=== PATIENT | female | born 1945 | race African-American/Black ===

== ENCOUNTER 2017-01-25 15:41 | Observation (INO) ==
--- NOTE | 2017-01-25 15:50 | Emergency Department Note ---
Disposition Clinical Impression: Chest pain, Elevated lipase Disposition: Admitted As Inpatient Condition: Good General Adult HPI - General Chief complaint: ED Chest Pain Stated complaint: C/P Time Seen by Provider: 01/25/17 15:46 Source: patient Limitations: no limitations - History of Present Illness Pain Scale: 6 - Related Data Home Medications Medication Instructions Recorded Confirmed Exemestane [Aromasin] 25 mg PO DAILY 02/28/15 01/26/17 Albuterol Sulfate [Albuterol 1 puff Q6HR PRN 03/01/15 01/26/17 Inhaler] Atorvastatin [Lipitor] 40 mg PO HS 03/01/15 01/26/17 Cholecalciferol (D-3) 1,000 unit PO DAILY 03/01/15 01/26/17 Fluticasone Propionate Nasal 2 spray NS DAILY PRN 03/01/15 01/26/17 [Flonase] Fluticasone/Salmeterol [Advair 1 each IH Q12H 03/01/15 01/26/17 250-50 Diskus] Lutein 6 mg PO DAILY 03/01/15 01/26/17 Multivit-Min/FA/Lycopen/Lutein 1 each PO DAILY 03/01/15 01/26/17 [Centrum Silver Tablet] Ranitidine HCl [Zantac] 300 mg PO HS 03/01/15 01/26/17 Triamterene/HCTZ 37.5/25mg 1 each PO DAILY 03/01/15 01/26/17 [Dyazide] Omeprazole [PriLOSEC] 40 mg PO DAILY 09/03/15 01/26/17 Acetaminophen [Tylenol] 325 mg PO Q6HR PRN 03/08/16 01/26/17 Diltiazem HCl [Cardizem Cd] 360 mg PO DAILY 03/08/16 01/26/17 Lisinopril [Zestril] 5 mg PO DAILY 03/08/16 01/26/17 Aspirin 81 mg PO DAILY 03/09/16 01/26/17 Dicyclomine [Bentyl] 10 mg PO QID PRN 12/17/16 01/26/17 Isosorbide MONOnitrate (24 HR) 30 mg PO DAILY 12/17/16 01/26/17 [Imdur] Meclizine HCl [Verticalm] 25 mg PO Q4-6H PRN 12/17/16 01/26/17 Montelukast [Singulair] 10 mg PO HS 12/17/16 01/26/17 Pregabalin [Lyrica] 150 mg PO BID 12/17/16 01/26/17 Ferrous Sulfate [Iron] 325 mg PO BID 01/25/17 01/26/17 Methocarbamol [Robaxin] 750 mg PO Q4H PRN 01/26/17 01/26/17 Previous Rx's Medication Instructions Recorded Albuterol Neb [Proventil Neb] 2.5 mg IH Q4HR PRN #20 vial.neb 10/26/15 Amoxicillin/Clavulanate [Augmentin] 875 mg PO BIDWM #14 tablet 01/26/17 Clindamycin [Cleocin] 150 mg PO QID #28 capsule 01/26/17 Fluconazole [Diflucan] 150 mg PO ONCE PRN #1 tablet 01/26/17 Allergies Allergy/AdvReac Type Severity Reaction Status Date / Time Beclomethasone Allergy Swelling Verified 01/26/17 08:29 [From Beconase AQ] of Lip/Tongue/Throat Erythromycin Base Allergy Rash Verified 01/26/17 08:29 adhesive AdvReac Redness of Verified 01/26/17 08:29 Skin cimetidine [From Tagamet] AdvReac See Verified 01/26/17 08:29 Comments Iodinated Contrast- Oral and AdvReac See Verified 01/26/17 08:29 IV Dye Comments [Iodinated Contrast Media - IV Dye] pantoprazole [From Protonix] AdvReac See Verified 01/26/17 08:29 Comments Past Medical History - Past Medical History Medical history: Reports: arthritis, asthma, cancer, coronary artery disease, diabetes, fibromyalgia, GERD, hypertension, migraine, myocardial infarction Surgical history: Reports: breast surgery, hysterectomy Psychiatric history: Reports: no psych history - Social History Smoking Status: Never smoker Smokeless Tobacco Status: No Alcohol use: Reports: none Drug use: Reports: none Physical Exam - General Limitations: no limitations General appearance: alert Course Vital Signs Temperature 98.7 F 01/25/17 15:42 Pulse Rate 82 01/25/17 15:42 Respiratory Rate 18 01/25/17 15:42 Blood Pressure 152/68 01/25/17 15:42 O2 Sat by Pulse Oximetry 99 01/25/17 15:42 Temperature 97.7 F 01/26/17 15:32 Pulse Rate 64 01/26/17 15:32 Respiratory Rate 14 01/26/17 15:32 Blood Pressure 171/87 01/26/17 15:32 O2 Sat by Pulse Oximetry 97 01/26/17 15:32 Oxygen Delivery Oxygen Delivery Room Air Medical Decision Making - Lab Data Result diagrams: 01/26/17 05:08 01/26/17 05:08 Lab Results 01/25/17 01/25/17 01/25/17 Range/Units 16:09 16:09 16:09 WBC 13.4 H (4.3-11.1) K/mcL RBC 4.36 (3.82-4.97) M/mcL Hgb 12.3 (11.5-15.4) g/dL Hct 39.2 (35.3-44.9) % MCV 89.9 (83.0-100.0) fL MCH 28.2 (28.0-33.3) pg MCHC 31.4 L (31.6-35.5) g/dL RDW 15.3 H (11.5-14.5) % Plt Count 241 (140-400) K/mcL MPV 10.1 (9.4-12.4) fL Immature Gran % 0.4 (0-4) % Seg Neutrophils % 84.3 % Lymphocytes % 9.9 % Monocytes % 4.3 % Eosinophils % 0.9 % Basophils % 0.2 % Neutrophils # 11.3 H (1.6-8.9) K/mcL Lymphocytes # 1.3 (0.6-4.6) K/mcL Monocytes # 0.6 (0.0-1.3) K/mcL Eosinophils # 0.1 (0.0-0.6) K/mcL Basophils # 0.0 (0.0-0.2) K/mcL PT 12.4 H (9.4-12.1) Seconds INR 1.1 APTT 28.2 (26.0-36.0) Seconds Sodium 139 (136-145) mEq/L Potassium 4.4 (3.5-4.5) mEq/L Chloride 102 (98-109) mEq/L Carbon Dioxide 31 H (19-29) mEq/L BUN 21 H (7-20) mg/dL Creatinine 1.23 H (0.57-1.11) mg/dL Est GFR ( Amer) 52 L (> 60) Est GFR (Non-Af Amer) 43 L (> 60) BUN/Creatinine Ratio 17 (6-26) Glucose 100 H (70-99) mg/dL Calculated Osmolality 291 (280-300) Calcium 9.7 (8.6-10.8) mg/dL Total Bilirubin (0.2-1.2) mg/dL Direct Bilirubin (0.0-0.5) mg/dL Indirect Bilirubin (0.0-1.2) mg/dL AST (5-34) Units/L ALT (0-55) Units/L Alkaline Phosphatase (38-126) Units/L Troponin I (0-0.03) ng/mL Serum Total Protein (6.0-8.3) g/dL Albumin (3.5-5.0) g/dL Globulin (2.4-3.5) g/dL Albumin/Globulin Ratio (1.1-2.2) Lipase (8-78) Units/L 01/25/17 01/25/17 Range/Units 16:09 16:09 WBC (4.3-11.1) K/mcL RBC (3.82-4.97) M/mcL Hgb (11.5-15.4) g/dL Hct (35.3-44.9) % MCV (83.0-100.0) fL MCH (28.0-33.3) pg MCHC (31.6-35.5) g/dL RDW (11.5-14.5) % Plt Count (140-400) K/mcL MPV (9.4-12.4) fL Immature Gran % (0-4) % Seg Neutrophils % % Lymphocytes % % Monocytes % % Eosinophils % % Basophils % % Neutrophils # (1.6-8.9) K/mcL Lymphocytes # (0.6-4.6) K/mcL Monocytes # (0.0-1.3) K/mcL Eosinophils # (0.0-0.6) K/mcL Basophils # (0.0-0.2) K/mcL PT (9.4-12.1) Seconds INR APTT (26.0-36.0) Seconds Sodium (136-145) mEq/L Potassium (3.5-4.5) mEq/L Chloride (98-109) mEq/L Carbon Dioxide (19-29) mEq/L BUN (7-20) mg/dL Creatinine (0.57-1.11) mg/dL Est GFR ( Amer) (> 60) Est GFR (Non-Af Amer) (> 60) BUN/Creatinine Ratio (6-26) Glucose (70-99) mg/dL Calculated Osmolality (280-300) Calcium (8.6-10.8) mg/dL Total Bilirubin 0.3 (0.2-1.2) mg/dL Direct Bilirubin 0.2 (0.0-0.5) mg/dL Indirect Bilirubin 0.1 (0.0-1.2) mg/dL AST 18 (5-34) Units/L ALT 23 (0-55) Units/L Alkaline Phosphatase 77 (38-126) Units/L Troponin I 0.00 (0-0.03) ng/mL Serum Total Protein 7.6 (6.0-8.3) g/dL Albumin 3.6 (3.5-5.0) g/dL Globulin 4.0 H (2.4-3.5) g/dL Albumin/Globulin Ratio 0.9 L (1.1-2.2) Lipase 414 H (8-78) Units/L Attestation Statement - Attestation Attestation: I examined this patient and my medical decision-making was reviewed with the Resident Physician. I agree with the documented findings, disposition and treatment plan as described except to the extent set forth below. Face to face time provided Patient seen in conjunction with the resident physician Dr. Giron. She has a history of diabetes, hypertension, coronary artery disease. She presents with chest discomfort over the past 4 days. She appears in no acute distress on initial exam.
[2017-01-25] MEDS ORDERED: Aspirin 81 MG TAB.CHEW PO ONE (16:02)
[2017-01-25] MEDS ORDERED: 0.9 % Sodium Chloride 500 ML IVC ONE (16:02)
[2017-01-25] MEDS ORDERED: *HR* Morphine 2 MG/ML SYRINGE IVP ONE (16:05)
--- NOTE | 2017-01-25 16:07 | Emergency Department Note ---
Disposition Clinical Impression: Elevated lipase Chest pain Qualifiers: Chest pain type: unspecified Qualified Code(s): R07.9 - Chest pain, unspecified Disposition: Admitted As Inpatient Referrals: NO,PCP [Primary Care Provider] - Forms: ED Satisfaction Letter Time of Disposition: 17:28 Chest Pain HPI - General Chief Complaint: ED Chest Pain Stated Complaint: C/P Time Seen by Provider: 01/25/17 15:46 Source: patient Limitations: no limitations Vital Signs Reviewed: Yes Nursing Notes Reviewed: Yes - History of Present Illness HPI Narrative: Patient is a 71-year-old female past medical history of hypertension, hypercholesterol, heart catheterization with no stent placement in 2012 presents emergency Department with complaint of left-sided chest pain has been going on for the past 4 days. She states the chest pain is stabbing like, constant, nonradiating, no nausea or vomiting, does not change with exertion, and she has not experienced any diaphoresis. The patient states she has been under added stress as of recently she has one the custody of HER-2 granddaughters this past Thursday 4 days ago and she got into a verbal argument with the father of the girl's last night. The patient states this does not feel the same as her chest pain she had when she was admitted to the hospital and had a catheterization done. Severity scale (1-10): 6 - Related Data Home Medications Medication Instructions Recorded Confirmed Exemestane [Aromasin] 25 mg PO DAILY 02/28/15 12/17/16 Albuterol Sulfate [Albuterol 1 puff Q6HR PRN 03/01/15 12/17/16 Inhaler] Atorvastatin [Lipitor] 40 mg PO HS 03/01/15 12/17/16 Cholecalciferol (D-3) 1,000 unit PO DAILY 03/01/15 12/17/16 Fluticasone Propionate Nasal 2 spray NS DAILY PRN 03/01/15 12/17/16 [Flonase] Fluticasone/Salmeterol [Advair 1 each IH Q12H 03/01/15 12/17/16 250-50 Diskus] Lutein 6 mg PO DAILY 03/01/15 12/17/16 Multivit-Min/FA/Lycopen/Lutein 1 each PO DAILY 03/01/15 12/17/16 [Centrum Silver Tablet] Ranitidine HCl [Zantac] 300 mg PO HS 03/01/15 12/17/16 Triamterene/HCTZ 37.5/25mg 1 each PO BID 03/01/15 12/17/16 [Dyazide] Omeprazole [PriLOSEC] 40 mg PO DAILY 09/03/15 12/17/16 Acetaminophen [Tylenol] 325 mg PO Q6HR PRN 03/08/16 12/17/16 Diltiazem HCl [Cardizem Cd] 360 mg PO DAILY 03/08/16 12/17/16 Lisinopril [Zestril] 5 mg PO DAILY 03/08/16 12/17/16 Aspirin 81 mg PO DAILY 03/09/16 12/17/16 Cetirizine HCl [Zyrtec] 10 mg PO DAILY PRN 12/17/16 12/17/16 Dicyclomine [Bentyl] 10 mg PO QID PRN 12/17/16 12/17/16 Isosorbide MONOnitrate (24 HR) 30 mg PO DAILY 12/17/16 12/17/16 [Imdur] Meclizine HCl [Verticalm] 25 mg PO Q4-6H PRN 12/17/16 12/17/16 Montelukast [Singulair] 10 mg PO DAILY 12/17/16 12/17/16 Pregabalin [Lyrica] 150 mg PO BID 12/17/16 12/17/16 Previous Rx's Medication Instructions Recorded Albuterol Neb [Proventil Neb] 2.5 mg IH Q4HR PRN #20 vial.neb 10/26/15 Ferrous Sulfate [Iron] 325 mg PO DAILY #90 tablet 11/27/16 Allergies Allergy/AdvReac Type Severity Reaction Status Date / Time Beclomethasone Allergy Difficulty Verified 12/17/16 11:35 [From Beconase AQ] Breathing cimetidine [From Tagamet] Allergy Abdominal Verified 12/17/16 11:35 Pain Erythromycin Base Allergy Rash Verified 12/17/16 11:35 adhesive AdvReac Redness of Verified 12/17/16 11:35 Skin Iodinated Contrast- Oral and AdvReac See Verified 12/17/16 11:35 IV Dye Comments [Iodinated Contrast Media - IV Dye] pantoprazole [From Protonix] AdvReac See Verified 12/17/16 11:35 Comments All systems ED: reviewed and negative except as stated. Chest Pain PMH - Past Medical History Medical history: Reports: arthritis, asthma, cancer, coronary artery disease, diabetes, fibromyalgia, GERD, hypertension, migraine, myocardial infarction Surgical history: Reports: breast surgery, hysterectomy Psychiatric history: Reports: no psych history - Social History Smoking Status: Never smoker Alcohol use: Reports: none Drug use: Reports: none Physical Exam Patient is sitting up comfortably in room she is laughing and in good spirits. - General Limitations: no limitations General appearance: alert, in no apparent distress - Head Head exam: atraumatic, normocephalic, normal inspection - Eye Eye exam: Present: normal appearance, PERRL, EOMI - ENT ENT exam: normal exam, normal oropharynx, mucous membranes moist - Neck Neck exam: Present: normal inspection, full ROM, trachea midline. Absent: tenderness - Chest Chest inspection: Present: normal inspection, symmetric chest wall rise. Absent : tenderness - Respiratory Respiratory exam: Present: normal lung sounds bilaterally. Absent: respiratory distress, wheezes, stridor - Cardiovascular Cardiovascular exam: Present: regular rate, normal rhythm, normal heart sounds - Abdominal Exam Abdominal exam: Present: soft, Non-Tender, normal bowel sounds - Extremities Exam Extremities exam: Present: normal inspection, full ROM, normal capillary refill. Absent: tenderness, pedal edema - Expanded Lower Extremity Exam Lower leg exam: Present: normal inspection, full ROM. Absent: tenderness, swelling Neurovascular/Tendon exam: Present: normal capillary refill, normal 2-point discrimination. Absent: pulse deficit, motor deficit, sensory deficit, extremity cold to touch - Back Exam Back exam: Present: normal inspection, full ROM. Absent: tenderness - Neurological Exam Neurological exam: Present: alert, oriented X3, CN II-XII intact - Psychiatric Psychiatric exam: Present: normal affect, normal mood - Skin Skin exam: Present: warm, dry, intact, normal color Course Course Narrative: Patient is a 71-year-old female with past medical history of a heart catheterization in 2012 that did not require stents. Patient presents today with a complaint of left-sided chest pain that is stabbing in nature and is constant and does not change with exertion and she does have episodes of nausea however she has had no emesis, diaphoresis, radiation. The patient's EKG is normal. I have given her morphine IV for pain and order a half liter of fluids for her. The patient has been sitting up in bed smiling and is laughing and joking very pleasant lady she appears to be in no distress. The plan is to order cardiac enzymes basic labs and order a chest x-ray to rule out any other cause of her chest. Patient agrees with the plan. - Reevaluation(s) Reevaluation #1: The patient states that her pain is now more epigastric in nature. Therefore, I added on a lipase and LFTs. Time: 17:11 Reevaluation #2: I discussed the patient case with the hospitalists Jaspal. They agree to accept the patient for elevated lipase and for ACS rule out. Time: 17:25 Reevaluation #3: On review of the patient's labs she does have an elevated lipase that is greater than 4 times or the normal limit therefore we will admit the patient for further evaluation and also for ACS rule out. Patient agrees with the plan Time: 17:26 Vital Signs Temperature 98.7 F 01/25/17 15:42 Pulse Rate 82 01/25/17 15:42 Respiratory Rate 18 01/25/17 15:42 Blood Pressure 152/68 01/25/17 15:42 O2 Sat by Pulse Oximetry 99 01/25/17 15:42 Temperature 98.7 F 01/25/17 15:42 Pulse Rate 77 01/25/17 16:19 Respiratory Rate 16 01/25/17 16:19 Blood Pressure 166/70 01/25/17 16:19 O2 Sat by Pulse Oximetry 97 01/25/17 16:19 Oxygen Delivery Oxygen Delivery Room Air Chest Pain - Medical Records Medical records reviewed: Yes I reviewed the patient's medical records. - Lab Data Lab results reviewed: Yes I reviewed the patient's lab results. Result diagrams: 01/25/17 16:09 01/25/17 16:09 Lab Results 01/25/17 01/25/17 01/25/17 Range/Units 16:09 16:09 16:09 WBC 13.4 H (4.3-11.1) K/mcL RBC 4.36 (3.82-4.97) M/mcL Hgb 12.3 (11.5-15.4) g/dL Hct 39.2 (35.3-44.9) % MCV 89.9 (83.0-100.0) fL MCH 28.2 (28.0-33.3) pg MCHC 31.4 L (31.6-35.5) g/dL RDW 15.3 H (11.5-14.5) % Plt Count 241 (140-400) K/mcL MPV 10.1 (9.4-12.4) fL Immature Gran % 0.4 (0-4) % Seg Neutrophils % 84.3 % Lymphocytes % 9.9 % Monocytes % 4.3 % Eosinophils % 0.9 % Basophils % 0.2 % Neutrophils # 11.3 H (1.6-8.9) K/mcL Lymphocytes # 1.3 (0.6-4.6) K/mcL Monocytes # 0.6 (0.0-1.3) K/mcL Eosinophils # 0.1 (0.0-0.6) K/mcL Basophils # 0.0 (0.0-0.2) K/mcL PT 12.4 H (9.4-12.1) Seconds INR 1.1 APTT 28.2 (26.0-36.0) Seconds Sodium 139 (136-145) mEq/L Potassium 4.4 (3.5-4.5) mEq/L Chloride 102 (98-109) mEq/L Carbon Dioxide 31 H (19-29) mEq/L BUN 21 H (7-20) mg/dL Creatinine 1.23 H (0.57-1.11) mg/dL Est GFR ( Amer) 52 L (> 60) Est GFR (Non-Af Amer) 43 L (> 60) BUN/Creatinine Ratio 17 (6-26) Glucose 100 H (70-99) mg/dL Calculated Osmolality 291 (280-300) Calcium 9.7 (8.6-10.8) mg/dL Total Bilirubin (0.2-1.2) mg/dL Direct Bilirubin (0.0-0.5) mg/dL Indirect Bilirubin (0.0-1.2) mg/dL AST (5-34) Units/L ALT (0-55) Units/L Alkaline Phosphatase (38-126) Units/L Troponin I (0-0.03) ng/mL Serum Total Protein (6.0-8.3) g/dL Albumin (3.5-5.0) g/dL Globulin (2.4-3.5) g/dL Albumin/Globulin Ratio (1.1-2.2) Lipase (8-78) Units/L 01/25/17 01/25/17 Range/Units 16:09 16:09 WBC (4.3-11.1) K/mcL RBC (3.82-4.97) M/mcL Hgb (11.5-15.4) g/dL Hct (35.3-44.9) % MCV (83.0-100.0) fL MCH (28.0-33.3) pg MCHC (31.6-35.5) g/dL RDW (11.5-14.5) % Plt Count (140-400) K/mcL MPV (9.4-12.4) fL Immature Gran % (0-4) % Seg Neutrophils % % Lymphocytes % % Monocytes % % Eosinophils % % Basophils % % Neutrophils # (1.6-8.9) K/mcL Lymphocytes # (0.6-4.6) K/mcL Monocytes # (0.0-1.3) K/mcL Eosinophils # (0.0-0.6) K/mcL Basophils # (0.0-0.2) K/mcL PT (9.4-12.1) Seconds INR APTT (26.0-36.0) Seconds Sodium (136-145) mEq/L Potassium (3.5-4.5) mEq/L Chloride (98-109) mEq/L Carbon Dioxide (19-29) mEq/L BUN (7-20) mg/dL Creatinine (0.57-1.11) mg/dL Est GFR ( Amer) (> 60) Est GFR (Non-Af Amer) (> 60) BUN/Creatinine Ratio (6-26) Glucose (70-99) mg/dL Calculated Osmolality (280-300) Calcium (8.6-10.8) mg/dL Total Bilirubin 0.3 (0.2-1.2) mg/dL Direct Bilirubin 0.2 (0.0-0.5) mg/dL Indirect Bilirubin 0.1 (0.0-1.2) mg/dL AST 18 (5-34) Units/L ALT 23 (0-55) Units/L Alkaline Phosphatase 77 (38-126) Units/L Troponin I 0.00 (0-0.03) ng/mL Serum Total Protein 7.6 (6.0-8.3) g/dL Albumin 3.6 (3.5-5.0) g/dL Globulin 4.0 H (2.4-3.5) g/dL Albumin/Globulin Ratio 0.9 L (1.1-2.2) Lipase 414 H (8-78) Units/L - Radiology Data Radiology results reviewed: Yes I reviewed the patient's radiology results. - EKG Data EKG attestation: Yes I reviewed and interpreted this EKG. EKG results narrative: EKG was interpreted by me. This EKG is a sinus rhythm at a rate of 84 bpm is normal access and her MA, QRS, QT intervals are all within normal limits. I see no signs of ST elevation or depression noted Q waves no T-wave abnormalities no signs of ischemia. This is unchanged from her prior EKG done on 03/08/16 Heart Score - Score History: Slightly Suspicious EKG: Normal Age: Greater than 65 Risk Factors: 1-2 risk factors Troponin: Less than normal limit HEART Score Total: 3
[2017-01-25 16:16] LABS: Basophils % 0.2 %; Eosinophils # 0.1 K/mcL (0.0-0.6); Eosinophils % 0.9 %; Hematocrit 39.2 % (35.3-44.9); Hemoglobin 12.3 g/dL (11.5-15.4); Immature Granulocytes % 0.4 % (0-4); Lymphocytes # 1.3 K/mcL (0.6-4.6); Lymphocytes % 9.9 %; Mean Corpuscular HGB Conc 31.4 g/dL (31.6-35.5); Mean Corpuscular Hemoglobin 28.2 pg (28.0-33.3); Mean Corpuscular Volume 89.9 fL (83.0-100.0); Mean Platelet Volume 10.1 fL (9.4-12.4); Monocytes # 0.6 K/mcL (0.0-1.3); Monocytes % 4.3 %; Neutrophils # 11.3 K/mcL (1.6-8.9); Platelet Count 241 K/mcL (140-400); Red Blood Count 4.36 M/mcL (3.82-4.97); Red Cell Distribution Width 15.3 % (11.5-14.5); Segmented Neutrophils % 84.3 %
[2017-01-25 16:22] LABS: INR 1.1; Prothrombin Time 12.4 Seconds (9.4-12.1)
[2017-01-25 16:25] LABS: Activated Partial Thrombo Time 28.2 Seconds (26.0-36.0)
[2017-01-25 16:27] LABS: Calcium 9.7 mg/dL (8.6-10.8); Potassium 4.4 mEq/L (3.5-4.5)
[2017-01-25] MEDS ORDERED: Aspirin 81 MG TAB.CHEW ONE (16:33)
[2017-01-25] MEDS ORDERED: Hyoscyamine 0.5 MG/ML MLS SQ ONE (16:38)
[2017-01-25 16:56] LABS: Albumin 3.6 g/dL (3.5-5.0); Albumin/Globulin Ratio 0.9 (1.1-2.2); Bilirubin,Direct 0.2 mg/dL (0.0-0.5); Bilirubin,Indirect 0.1 mg/dL (0.0-1.2); Bilirubin,Total 0.3 mg/dL (0.2-1.2); Total Protein 7.6 g/dL (6.0-8.3)
[2017-01-25] MEDS ORDERED: Hyoscyamine SL 0.125 MG TAB.SUBL SL ONE (17:18)
[2017-01-25] MEDS ORDERED: *HR* Morphine 2 MG/ML SYRINGE IVP PRN (21:03)
[2017-01-25] MEDS ORDERED: *HR* HYDROcodone/Acet 5/325 mg TABLET PO PRN (21:03)
[2017-01-25] MEDS ORDERED: Naloxone 0.4 MG/ML INJ IVP PRN (21:03)
[2017-01-25] MEDS ORDERED: Ondansetron 4 MG/2 ML VIAL IVP PRN (21:03)
--- NOTE | 2017-01-25 21:59 | Internal Med History&Physical ---
<Wesley Bills - Last Filed: 01/25/17 22:44> Date of Encounter: 01/25/17 Time of Encounter: 20:00 Assessment and Plan (1) Chest pain Current visit: Yes Status: Acute Patient presents with acute chest pain that began 4 days ago and became progressively worse. Patient describes pain as sharp and located under her left breast with radiation to her left arm. Patient has a history of CAD and heart catheterization with no stent placement. Patient to be placed on continuous cardiac telemetry with supplemental O2, trended troponins x2, and EV echocardiogram. Will consider possible cardiology consult based on echocardiogram and troponin results. Patient to be monitored closely for signs of increasing cardiac distress. Qualifiers: Chest pain type: other chest pain Qualified Code(s): R07.89 - Other chest pain; R07.8 - Other chest pain (2) Leukocytosis Current visit: Yes Status: Acute Patient presents with leukocytosis and WBC of 13.4 on admission. Patient reports she has a golf ball-sized cyst on the left labia that she has been prescribed PO Bactrim for less than 7 days ago. Will discontinue PO Bactrim and start IV Unasyn 1.5 gm Q6. Follow-up labs ordered to monitor patient's WBC. Blood cultures x2 ordered stat. Will monitor patient for signs of increasing infection and consider changing IV antibiotics as necessary. Qualifiers: Leukocytosis type: unspecified Qualified Code(s): D72.829 - Elevated white blood cell count, unspecified (3) SOB (shortness of breath) Current visit: Yes Status: Acute Patient presents with increased shortness of breath associated with current chest pain symptoms. Patient denies use of home O2. Will place patient on supplemental O2 with titration if SpO2 < 92% and continuous SpO2 monitoring. CPAP ordered HS for sleep apnea. DuoNebs Q6 PRN ordered. (4) HTN (hypertension) Current visit: Yes Status: Chronic Patient presents with history of chronic HTN. Will monitor patient and vital signs and continue patient's lisinopril. Qualifiers: Hypertension type: essential hypertension Qualified Code(s): I10 - Essential (primary) hypertension (5) HLD (hyperlipidemia) Current visit: Yes Status: Chronic Patient presents with history of chronic HLD. Lipid panel ordered. Will continue patient's Lipitor. Qualifiers: Hyperlipidemia type: pure hypercholesterolemia Qualified Code(s): E78.00 - Pure hypercholesterolemia, unspecified; E78.0 - Pure hypercholesterolemia (6) GERD (gastroesophageal reflux disease) Current visit: Yes Status: Chronic Patient presents with chronic GERD. Patient reports that she cannot take Protonix due to abdominal pain and stomach upset it causes her. Will continue patient's Prilosec and Zantac PO. Qualifiers: Esophagitis presence: with esophagitis Qualified Code(s): K21.0 - Gastro- esophageal reflux disease with esophagitis (7) BRAD (obstructive sleep apnea) Current visit: Yes Status: Chronic Patient presents with chronic sleep apnea. Supplemental O2 ordered. CPAP ordered HS. (8) DVT prophylaxis Current visit: Yes Status: Acute Patient to be placed on DVT prophylaxis due to admission protocol and bed rest status. Heparin 5,000 units SQ Q8 ordered. Internal Medicine - H&P: HPI Chief complaint: Chest pain Admitted From: Emergency Dept Plans for Post Hospital Care: Home History of present illness: Mrs. Bray is a 71 year old female who presents from the ED with chief complaint of chest pain that she states began 4 days ago and became worse last night. She describes the pain as sharp under her left breast that radiated to her left arm. Patient states that she has had this type of pain before but not as bad. She denies recent illness, nausea, vomiting, diaphoresis, abdominal pain , dizziness, generalized weakness, vision changes, pre-syncope, or syncope. She states that she has been under more stress lately due to family issues. Patient does report some SOB with symptoms. Patient has a medical history of arthritis, asthma, sarcoidosis, CAD, cancer, diabetes, fibromyalgia, GERD, HTN, migraine, and previous DE. Patient also states that she has a golf ball-sized cyst on her left labia that she was prescribed PO Bactrim for. Mrs. Bray had a heart catheterization in 2012 with no stent placement. Mrs. Bray it at moderate risk for cardiac event based on her history and current symptoms and will be placed as observation status with orders for continuous cardiac telemetry, supplemental O2 with SpO2 monitoring, EV echocardiogram, troponins trended x2, as well as IV Unasyn for cyst infection and leukocytosis. Patient to be monitored closely for signs of increased infection, cardiac and/or respiratory distress. Time spent with patient > 40 minutes. Past Med Surg Social Fam HX - Past Medical History Source: patient Medical history: arthritis, asthma, cancer, coronary artery disease, diabetes, fibromyalgia, GERD, hypertension, migraine, myocardial infarction Psychiatric history: no psych history - Past Surgical History Surgical History: breast surgery, hysterectomy - Social History Smoking Status: Never smoker Smokeless Tobacco Status: No Alcohol use: none Drug use: none Current living situation: Home, With Family Activity Level: Independent ambulation, Very active Recent Out of Country Travel Within the Last 8 Weeks: No Exposure or Possible Exposure to Illness During Travel: No - Family History Mother Race: Living Status: Still Living Hx Family Cardiac Disorders: Yes (HTN) Hx Family Cancer: Yes (Breast) Father Race: Living Status: Age at : 75 Hx Family Cardiac Disorders: Yes (HTN) Hx Family Cancer: Yes (Colon, prostate) Brother Race: Living Status: Age at : 68 Hx Family Cancer: Yes (Colon, liver, lung) Internal Medicine - H&P: Meds Exemestane [Aromasin] 25 mg PO DAILY 02/28/15 [History] Albuterol Sulfate [Albuterol Inhaler] 1 puff Q6HR PRN 03/01/15 [History] Atorvastatin [Lipitor] 40 mg PO HS 03/01/15 [History] Cholecalciferol (D-3) 1,000 unit PO DAILY 03/01/15 [History] Fluticasone Propionate Nasal [Flonase] 2 spray NS DAILY PRN 03/01/15 [History] Fluticasone/Salmeterol [Advair 250-50 Diskus] 1 each IH Q12H 03/01/15 [History] Lutein 6 mg PO DAILY 03/01/15 [History] Multivit-Min/FA/Lycopen/Lutein [Centrum Silver Tablet] 1 each PO DAILY 03/01/15 [History] Ranitidine HCl [Zantac] 300 mg PO HS 03/01/15 [History] Triamterene/HCTZ 37.5/25mg [Dyazide] 1 each PO DAILY 03/01/15 [History] Omeprazole [PriLOSEC] 40 mg PO DAILY 09/03/15 [History] Albuterol Neb [Proventil Neb] 2.5 mg IH Q4HR PRN #20 vial.neb 10/26/15 [Rx] Acetaminophen [Tylenol] 325 mg PO Q6HR PRN 03/08/16 [History] Diltiazem HCl [Cardizem Cd] 360 mg PO DAILY 03/08/16 [History] Lisinopril [Zestril] 5 mg PO DAILY 03/08/16 [History] Aspirin 81 mg PO DAILY 03/09/16 [History] Dicyclomine [Bentyl] 10 mg PO QID PRN 12/17/16 [History] Isosorbide MONOnitrate (24 HR) [Imdur] 30 mg PO DAILY 12/17/16 [History] Meclizine HCl [Verticalm] 25 mg PO Q4-6H PRN 12/17/16 [History] Montelukast [Singulair] 10 mg PO HS 12/17/16 [History] Pregabalin [Lyrica] 150 mg PO BID 12/17/16 [History] Albuterol Sulfate [Proair Hfa] 1 puff IH PRN 01/25/17 [History] Ferrous Sulfate [Iron] 325 mg PO BID 01/25/17 [History] Fluticasone/Salmeterol [Advair 250-50 Diskus] 1 each IH BID 01/25/17 [History] Allergies Beclomethasone [From Beconase AQ] Allergy (Verified 12/17/16 11:35) Difficulty Breathing cimetidine [From Tagamet] Allergy (Verified 12/17/16 11:35) Abdominal Pain Erythromycin Base Allergy (Verified 12/17/16 11:35) Rash adhesive Adverse Reaction (Verified 12/17/16 11:35) Redness of Skin Iodinated Contrast- Oral and IV Dye [Iodinated Contrast Media - IV Dye] Adverse Reaction (Verified 12/17/16 11:35) See Comments renal insufficiency pantoprazole [From Protonix] Adverse Reaction (Verified 12/17/16 11:35) See Comments abdominal pain All Systems PM: A 10-system review of systems was performed and is negative for pertinent findings except as documented above in the HPI. - Constitutional Constitutional: no chills, no fever(s), no night sweats - EENT Eyes: no change in vision, no discharge, no pain, no photophobia Ears: no ear discharge, no ear pain, no tinnitus Nose, mouth and throat: no dysphagia, no nasal discharge, no neck pain, no sore throat - Breasts Breasts: as per HPI - Cardiovascular Cardiovascular ROS IM: as per HPI, chest pain, dyspnea - Respiratory Respiratory: as per HPI, dyspnea - Gastrointestinal Gastrointestinal: no abdominal pain, no diarrhea, no hematemesis, no hematochezia, no melena, no nausea, no vomiting - Genitourinary Genitourinary: no change in urinary stream, no dysuria, no flank pain, no hematuria Menstruation: as per HPI - Musculoskeletal Musculoskeletal ROS IM: no numbness, no tingling - Integumentary Integumentary IM: no rash, no unusual bruising - Neurological Neurological ROS: no confusion, no convulsions, no focal weakness, no numbness, no tingling, no tremor(s) - Psychiatric Psychiatric: as per HPI - Endocrine Endocrine IM: as per HPI - Hematologic/Lymphatic Hematologic/Lymphatic: no easy bruising - Allergic/Immunologic Allergic/Immunologic: as per HPI - Constitutional Vitals: Temp Pulse Resp BP Pulse Ox 98.7 F 71 16 126/75 96 01/25/17 18:27 01/25/17 18:27 01/25/17 18:27 01/25/17 18:27 01/25/17 18:27 General appearance: Present: cooperative, A&O X 3, morbidly obese, pleasant, no acute distress, answers questions appropriately - Head Head exam: Present: atraumatic, normocephalic - Eye Eye exam: Present: PERRL, conjuntiva pink, sclera anicteric Pupils: Present: PERRL - ENT ENT exam: Present: normal exam, normal external ear exam - Neck Neck exam general surgery: Present: supple, trachea midline. Absent: lymphadenopathy - Respiratory Respiratory exam: Present: CTAB. Absent: accessory muscle use, rales, rhonchi, wheezes - Cardiovascular Cardiovascular exam: Present: irregular rhythm - GI/Abdominal GI/Abdominal exam: Present: normal bowel sounds, soft, no peritoneal signs. Absent: distended, tenderness - Rectal Rectal exam: Present: deferred - Additional comments: exam deferred. - Extremities Exam Extremities exam: Present: warm, radial pulses palpable and symetrical. Absent : calf tenderness, cyanotic, pedal edema - Back Exam Back exam: Present: normal inspection - Neurological Exam Neurological exam: Present: CN II-XII intact, oriented X3, no focal deficits. Absent: pronater drift, facial droop, speech deficit - Psychiatric Psychiatric exam: Present: normal affect, normal mood - Skin Skin exam: Present: dry, intact Internal Med - H&P Results - Labs CBC & Chem 7: 01/25/17 16:09 01/25/17 16:09 - EKG Data EKG shows normal: sinus rhythm - EKG Data Prior EKG available for review: yes When compared to previous EKG: there is no significant change Interpretation IM: normal EKG - Impressions EKG dated 03/08/16 shows sinus rhythm. EKG dated 01/25/17 shows sinus rhythm. - Diagnostic Studies Chest x-ray Additional comments: Impressions Chest X-Ray 01/25/17 16:02 IMPRESSION: No acute cardiopulmonary disease. D/ / João Mary MD / João Mary MD Interpreting Provider: João Mary MD <Servando Herrera - Last Filed: 01/25/17 23:37> Date of Encounter: 01/25/17 Time of Encounter: 19:30 Internal Medicine - H&P: HPI History of present illness: Ms. Bray is a 71 year old female All Systems PM: A 10-system review of systems was performed and is negative for pertinent findings except as documented above in the HPI. - Constitutional Vitals: Temp Pulse Resp BP Pulse Ox 98.7 F 71 16 126/75 96 01/25/17 18:27 01/25/17 18:27 01/25/17 18:27 01/25/17 18:27 01/25/17 18:27 Internal Med - H&P Results - Labs CBC & Chem 7: 01/25/17 16:09 01/25/17 16:09 - Attending Attestation I examined this patient and my medical decision-making was reviewed with the nurse practitioner. I agree with the documented history of present illness, review of systems, past medical, surgical social and family histories and examination findings, disposition and treatment plan as described above except to any changes set forth below. 71-year-old female patient with history of coronary artery disease, fibromyalgia , diabetes, hypertension presented with complaints of chest pain over her left breast and just below her left breast. Nonradiating. This pain feels different than the prior episodes of chest pain she had when she was in my in the past. She denies any fever chills or night sweats. Also complains of some pain in her mid abdomen. No relation to food or diet. This pain also does not radiate. She was recently started on Bactrim for a labial cyst infection. Patient is dealing with increased stress at home due to family issues. On examination, there is some tenderness in the chest wall just below her left breast. S1 and S2 are normal. It sounds are also normal. Patient is awake alert and oriented. No pedal edema. Midepigastric abdominal tenderness without any guarding or rigidity. EKG shows normal sinus rhythm. Chest pain: Left-sided Precordial chest pain. Trend troponins. Telemetry. We will get 2-D echocardiogram. Mild acute pancreatitis: Patient has abdominal tenderness with elevated lipase. We will get ultrasound of the abdomen to look for any gallbladder disease. Check lipid profile. Acute kidney injury: Patient's creatinine is slightly elevated. Unclear baseline. But patient was taking Bactrim recently. We will stop Bactrim. Gentle hydration. Follow renal function. Labial cyst infection with leukocytosis: We will stop Bactrim. Treat with IV Unasyn for now. Consider discharging patient on Augmentin.
[2017-01-25] MEDS: Acetaminophen 325 MG TABLET PO PRN (22:00)
[2017-01-25] MEDS: 0.9 % Sodium Chloride 1,000 ML IVC SCH (22:01)
[2017-01-25] MEDS ORDERED: Ipratropium/Albuterol Neb 3 ML IH PRN (22:34)
[2017-01-25] MEDS ORDERED: Famotidine 20 MG TABLET PO SCH (23:45)
[2017-01-26] MEDS: Ampicillin/Sulbactam 1,500 MG in 0.9 % Sodium Chloride Mini Bag 100 ML IVPB SCH ×4 (00:03→17:32)
[2017-01-26 05:57] LABS: Basophils % 0.3 %; Eosinophils # 0.2 K/mcL (0.0-0.6); Eosinophils % 1.6 %; Hematocrit 33.2 % (35.3-44.9); Immature Granulocytes % 0.3 % (0-4); Lymphocytes # 1.6 K/mcL (0.6-4.6); Lymphocytes % 16.2 %; Mean Corpuscular HGB Conc 32.2 g/dL (31.6-35.5); Mean Corpuscular Hemoglobin 28.9 pg (28.0-33.3); Mean Corpuscular Volume 89.7 fL (83.0-100.0); Mean Platelet Volume 10.8 fL (9.4-12.4); Monocytes # 0.4 K/mcL (0.0-1.3); Monocytes % 4.2 %; Neutrophils # 7.9 K/mcL (1.6-8.9); Platelet Count 202 K/mcL (140-400); Red Cell Distribution Width 15.2 % (11.5-14.5); Segmented Neutrophils % 77.4 %
[2017-01-26 05:59] LABS: Hemoglobin 10.7 g/dL (11.5-15.4)
[2017-01-26] MEDS: *HR* Heparin 5,000 UNIT/ML VIAL SQ SCH ×2 (06:01→14:25)
[2017-01-26 06:10] LABS: Hemoglobin A1C 5.8 %
[2017-01-26 06:20] LABS: BUN/Creatinine Ratio 18 (6-26); Blood Urea Nitrogen 17 mg/dL (7-20); Calcium 8.7 mg/dL (8.6-10.8); Carbon Dioxide 29 mEq/L (19-29); Chloride 105 mEq/L (98-109); Cholesterol 120 mg/dL (< 200); Glucose 106 mg/dL (70-99); HDL Cholesterol 40 mg/dL (40-59); LDL Cholesterol,Calculated 68 mg/dL (0-99); Magnesium 2.1 mg/dL (1.6-2.6); Osmolality,Calculated 288 (280-300); Sodium 138 mEq/L (136-145); Triglycerides 58 mg/dL (< 150); eGFR For African Americans > 60 (> 60); eGFR For Non-African Americans 57 (> 60)
[2017-01-26] MEDS ORDERED: Pregabalin 75 MG CAPSULE PO SCH (09:00)
[2017-01-26] MEDS ORDERED: (Exemestane [Aromasin] 25 MG) PO SCH (09:00)
[2017-01-26] MEDS: 0.9 % Sodium Chloride 1,000 ML IVC SCH (11:47)
[2017-01-26] MEDS: Aspirin 81 MG TAB.CHEW PO SCH ×2 (11:56→15:57)
[2017-01-26] MEDS: Diltiazem CD (24hr) 180 MG CAPSULE PO SCH ×2 (11:56→15:57)
[2017-01-26] MEDS: Isosorbide MONOnitrate (24 HR) 30 MG TAB.ER.24H PO SCH ×2 (11:57→15:58)
[2017-01-26 15:32] VITALS: BP 171/87
--- NOTE | 2017-01-26 15:57 | Electrocardiograph Report ---
[address] [address] Test Date: 2017-01-25 Pat Name: Shari Bray Department: 105 Room: 3B32 Gender: F Integrated Marketing Manager: : 1945 Requested By: Jason Giron Order Number: [id number] Reading MD: Spike Martin MD Measurements Intervals [place] Rate: 84 P: 61 MS: 171 QRS: 10 QRSD: 83 T: 47 QT: 356 QTc: 397 Interpretive Statements SINUS RHYTHM Electronically Signed On 01-26-2017 15:55:09 EDT by Spike Martin MD
--- NOTE | 2017-01-26 17:25 | Discharge Summary ---
Date of Encounter: 01/26/17 Time of Encounter: 10:00 - Discharge Diagnosis (1) Chest pain Priority: Primary Status: Acute Comments: Pt reports pain in left breast, L ribs, L anterior chest. Pt states that she does not have pain, but states that she does feel "fullness". She denies SOB, palpitations, pain at this time, nausea, diaphoresis. History of CAD and heart cath with no stent placement. Echo LVEF 60-65%. Normal LV chamber size and function. Mild concentric left ventricular hypertrophy. Mild left ventricular diastolic dysfunction. Normal right ventricular structure and function. No evidence of pulmonary hypertension. No significant valvular dysfunction. Troponins were negative. Pt had a stress test in 04/21 that was negative and gated EF >70%. Chest X-Ray 01/25/17 16:02 IMPRESSION: No acute cardiopulmonary disease. D/ / João Mary MD / João Mary MD Interpreting Provider: João Mary MD Qualifiers: Chest pain type: other chest pain Qualified Code(s): R07.89 - Other chest pain; R07.8 - Other chest pain (2) Leukocytosis Priority: Secondary Status: Resolved Qualifiers: Leukocytosis type: unspecified Qualified Code(s): D72.829 - Elevated white blood cell count, unspecified (3) BRAD (obstructive sleep apnea) Priority: Secondary Status: Chronic Comments: CPAP at night. (4) HTN (hypertension) Priority: Secondary Status: Chronic Comments: Well controlled. Continue home medications. Qualifiers: Hypertension type: essential hypertension Qualified Code(s): I10 - Essential (primary) hypertension (5) HLD (hyperlipidemia) Priority: Secondary Status: Chronic Comments: Chronic. Continue Zocor. Lipid panel WNL. Qualifiers: Hyperlipidemia type: pure hypercholesterolemia Qualified Code(s): E78.00 - Pure hypercholesterolemia, unspecified; E78.0 - Pure hypercholesterolemia (6) GERD (gastroesophageal reflux disease) Priority: Secondary Status: Chronic Comments: Pt states that she feels like her GERD is becoming worse. She states that she is unsure if she is having cardiac chest pain or if it is exacerbation of GERD symptoms. Pt takes Pepcid and Zantac. Continue at home. Patient was evaluated for upper abdominal pain. She had an unremarkable abdominal ultrasound. 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 Patient will follow up outpatient with primary care. Qualifiers: Esophagitis presence: with esophagitis Qualified Code(s): K21.0 - Gastro- esophageal reflux disease with esophagitis (7) SOB (shortness of breath) Priority: Secondary Status: Acute Comments: Resolved. Patient was feeling short of breath but denies now. She does not have home O2 and she is not requiring oxygen at this time. Her lungs are clear. She does have history of COPD, asthma, and sarcoidosis. She follows up with Dr. Shankar. (8) DVT prophylaxis Priority: Secondary Status: Acute Comments: Heparin subcutaneous. - Discharge Medications Prescriptions: Amoxicillin/Clavulanate [Augmentin] 875 mg PO BIDWM #14 tablet Clindamycin [Cleocin] 150 mg PO QID #28 capsule Fluconazole [Diflucan] 150 mg PO ONCE PRN #1 tablet PRN Reason: Vaginal Irritation Home Medications: Exemestane [Aromasin] 25 mg PO DAILY 02/28/15 [History] Albuterol Sulfate [Albuterol Inhaler] 1 puff Q6HR PRN 03/01/15 [History] Atorvastatin [Lipitor] 40 mg PO HS 03/01/15 [History] Cholecalciferol (D-3) 1,000 unit PO DAILY 03/01/15 [History] Fluticasone Propionate Nasal [Flonase] 2 spray NS DAILY PRN 03/01/15 [History] Fluticasone/Salmeterol [Advair 250-50 Diskus] 1 each IH Q12H 03/01/15 [History] Lutein 6 mg PO DAILY 03/01/15 [History] Multivit-Min/FA/Lycopen/Lutein [Centrum Silver Tablet] 1 each PO DAILY 03/01/15 [History] Ranitidine HCl [Zantac] 300 mg PO HS 03/01/15 [History] Triamterene/HCTZ 37.5/25mg [Dyazide] 1 each PO DAILY 03/01/15 [History] Omeprazole [PriLOSEC] 40 mg PO DAILY 09/03/15 [History] Albuterol Neb [Proventil Neb] 2.5 mg IH Q4HR PRN #20 vial.neb 10/26/15 [Rx] Acetaminophen [Tylenol] 325 mg PO Q6HR PRN 03/08/16 [History] Diltiazem HCl [Cardizem Cd] 360 mg PO DAILY 03/08/16 [History] Lisinopril [Zestril] 5 mg PO DAILY 03/08/16 [History] Aspirin 81 mg PO DAILY 03/09/16 [History] Dicyclomine [Bentyl] 10 mg PO QID PRN 12/17/16 [History] Isosorbide MONOnitrate (24 HR) [Imdur] 30 mg PO DAILY 12/17/16 [History] Meclizine HCl [Verticalm] 25 mg PO Q4-6H PRN 12/17/16 [History] Montelukast [Singulair] 10 mg PO HS 12/17/16 [History] Pregabalin [Lyrica] 150 mg PO BID 12/17/16 [History] Ferrous Sulfate [Iron] 325 mg PO BID 01/25/17 [History] Amoxicillin/Clavulanate [Augmentin] 875 mg PO BIDWM #14 tablet 01/26/17 [Rx] Clindamycin [Cleocin] 150 mg PO QID #28 capsule 01/26/17 [Rx] Fluconazole [Diflucan] 150 mg PO ONCE PRN #1 tablet 01/26/17 [Rx] Methocarbamol [Robaxin] 750 mg PO Q4H PRN 01/26/17 [History] Allergies/Adverse Reactions: Allergies Beclomethasone [From Beconase AQ] Allergy (Verified 01/26/17 08:29) Swelling of Lip/Tongue/Throat Erythromycin Base Allergy (Verified 01/26/17 08:29) Rash adhesive Adverse Reaction (Verified 01/26/17 08:29) Redness of Skin cimetidine [From Tagamet] Adverse Reaction (Verified 01/26/17 08:29) See Comments PATIENT DOESNT REMEMBER REACTION Iodinated Contrast- Oral and IV Dye [Iodinated Contrast Media - IV Dye] Adverse Reaction (Verified 01/26/17 08:29) See Comments DECREASES KIDNEY FUNCTION pantoprazole [From Protonix] Adverse Reaction (Verified 01/26/17 08:29) See Comments abdominal pain Procedures/tests Complete & Pending: Procedures Performed prior 72 hours Category Date Time Status US abdomen complete [US] Routine Exams 01/26/17 14:00 Completed EV echocardiogram Routine Y 01/26/17 21:10 Completed Date of admission: 01/25/17 17:40 Primary care physician: PCP NO Consults: 01/25/17 18:54 Consult to Patient Transporter [CONS] Routine Reason for SW Consult: POA, Living will paperwork Discharging clinician: Gertrude Dumont Anticipated date of discharge: 01/26/17 - Patient Status Disposition: Home, Self-Care Condition: Good Functional capacity at discharge: independent ambulation Overall status at discharge: patient is back to baseline - Discharge Instructions Follow Up With: NO,PCP [Primary Care Provider] - Additional Instructions: Follow up with your primary care provider as scheduled. Remember to eat small frequent meals,no spicy, fatty, fried foods. Discuss medication change or EGD with your primary care provider in next appointment. Take new medications as written and take them until they are completely gone. I have given you a prescription for Diflucan to use in case you began having vaginal irritation. Return to the emergency department as needed for any other problems or concerns or if your symptoms worsen or return. Abdominal ultrasound was negative, there is likely a small angiolipoma that will need to be evaluated by your primary care physician. Please follow-up for continued evaluation. - Diet and Activity Activity: increase activity as tolerated Diet: advance to your usual diet Interval History: Mrs. Castro is a 71-year-old female who presented to the emergency department with complaint of 4 days history of chest pain. She said it was sharp and migratory under her left breast, left mid axillary area, left upper chest. His not reproducible, it was not made worse or better by any factors. She has a history of GERD and states that at times she is not sure if it is reflux or cardiac chest pain. She has a history of coronary artery disease and diabetes, hypertension, prior PR. This puts patient at increased risk. Patient had a negative stress test in April,. Gated EF was greater than 70%. Echocardiogram done today showed an LVEF of 6065% with mild concentric LV hypertrophy, mild diastolic dysfunction, normal RV structure and function, all wall segments showed normal motion. Patient's troponins were negative and her chest x-ray was negative. The chest pain was not reproducible with palpation, movement, deep inspiration, however has resolved and she has had none since she has been here. Patient had abdominal ultrasound to assess for epigastric pain. It was unremarkable other than the likely small angiomyolipoma left kidney measuring 0.9 x 0.8 x 0.6 cm. She will need to follow-up with her primary care physician for continued imaging. Patient reports shortness of breath, however she has not been short of breath. Her lungs are clear and she is not requiring supplemental oxygen. Her sats are maintained above 92% on room air. She does have a history of severe COPD, asthma, sarcoidosis. She does see pulmonology here at the hospital for evaluation. She does not have an acute gastric patient at this time. Patient's A1c is 5.8 and she has not been taking her diabetic medications, primary care physician had stopped them. She does have a history of hypertension and hyperlipidemia, both are well controlled and she will continue her normal home medications. She does have a long history of reflux and she has not had an EGD. I recommended that she also follow up with primary care for medication adjustments and 4 evaluation for scope. Patient's labs and vital signs have been within normal limits. Patient is ready for discharge. Hospital course: Ms. Bray is a 71 year old female Time spent discussing smoking cessation with patient: 3 to 10 minutes - Time Spent with Patient Total time spent providing and/or coordinating discharge services: Less than 30 minutes - Constitutional Vitals: Temp Pulse Resp BP Pulse Ox 97.7 F 64 14 171/87 97 01/26/17 15:32 01/26/17 15:32 01/26/17 15:32 01/26/17 15:32 01/26/17 15:32 General appearance: Present: cooperative, A&O X 3, morbidly obese, pleasant, no acute distress, answers questions appropriately - Head Head exam: Present: normal inspection - Eye Eye exam: Present: normal appearance, conjuntiva pink - ENT ENT exam: Present: mucous membranes moist, normal exam, normal external ear exam - Neck Neck exam general surgery: Present: normal inspection. Absent: lymphadenopathy , tenderness - Respiratory Respiratory exam: Present: CTAB. Absent: chest wall tenderness, decreased breath sounds, rales, respiratory distress, rhonchi, stridor, wheezes - Cardiovascular Cardiovascular exam: Present: RRR, +S1, +S2. Absent: diastolic murmur, systolic murmur - GI/Abdominal GI/Abdominal exam: Present: distended, normal bowel sounds, soft, tenderness. Absent: hernia Additional comments: Tender in epigastric area. - Extremities Exam Extremities exam: Present: tenderness, warm, radial pulses palpable and symetrical. Absent: cyanotic, normal capillary refill, pedal edema - Neurological Exam Neurological exam: Present: alert, oriented X3. Absent: no focal deficits, facial droop, speech deficit - Skin Skin exam: Present: dry, intact, warm. Absent: rash
[2017-01-26] MEDS: Acetaminophen 325 MG TABLET PO PRN (17:31)
== END 2017-01-26 19:20 | disposition home or self-care (01) ==
LOC: EMEROO 15:41 → 3BNU 15:41
PROVIDERS: ADMIT Nurse Practitioner Family; ATTEND Registered Nurse

== ENCOUNTER 2019-12-11 22:17 | Observation (INO) ==
[2019-12-11 23:10] LABS: Basophils % 0.3 %; Eosinophils # 0.1 K/mcL (0.0-0.6); Eosinophils % 0.5 %; Hematocrit 39.8 % (35.3-44.9); Hemoglobin 12.6 g/dL (11.5-15.4); Immature Granulocytes % 0.5 % (0-4); Lymphocytes # 1.7 K/mcL (0.6-4.6); Lymphocytes % 12.4 %; Mean Corpuscular HGB Conc 31.7 g/dL (31.6-35.5); Mean Corpuscular Hemoglobin 30.1 pg (28.0-33.3); Mean Platelet Volume 9.7 fL (9.4-12.4); Monocytes # 0.6 K/mcL (0.0-1.3); Monocytes % 4.2 %; Platelet Count 216 K/mcL (140-400); Red Blood Count 4.19 M/mcL (3.82-4.97); Red Cell Distribution Width 15.9 % (11.5-14.5); Segmented Neutrophils % 82.1 %; White Blood Count 13.4 K/mcL (4.3-11.1)
[2019-12-11 23:17] LABS: INR 0.9; Prothrombin Time 10.5 Seconds (9.4-12.1)
[2019-12-11 23:19] LABS: Activated Partial Thrombo Time 27.7 Seconds (26.0-36.0)
[2019-12-11 23:34] LABS: BUN/Creatinine Ratio 13 (6-26); Blood Urea Nitrogen 19 mg/dL (8-23); Carbon Dioxide 30 mEq/L (23-29); Chloride 104 mEq/L (98-107); Glucose 95 mg/dL (70-105); Osmolality,Calculated 286 (280-300); Potassium 3.9 mEq/L (3.5-5.1); Sodium 137 mEq/L (136-145); eGFR For African Americans 44 (> 60); eGFR For Non-African Americans 36 (> 60)
[2019-12-11 23:35] LABS: Troponin I < 0.03 ng/mL (< 0.04)
[2019-12-12 02:49] LABS: Bilirubin,Urine Negative (Negative); Blood,Urine Negative (Negative); Clarity,Urine Clear (Clear); Color,Urine Yellow (Yellow); Glucose,Urine (UA) Normal (Normal); Ketones,Urine Negative (Negative); Leukocyte Esterase,Urine Negative (Negative); Nitrite,Urine Negative (Negative); Protein,Urine Negative (Neg-Trace); Specific Gravity,Urine 1.012 (1.010-1.025); Urobilinogen,Urine Normal (Normal)
[2019-12-12] MEDS ORDERED: Aspirin 325 MG TABLET PO ONE (03:59)
[2019-12-12] MEDS: 0.9 % Sodium Chloride 1,000 ML IVC SCH ×2 (04:17→10:08)
[2019-12-12] MEDS ORDERED: Naloxone 0.4 MG/ML INJ IVP PRN (05:18)
[2019-12-12] MEDS ORDERED: methocarbamoL 500 MG TABLET PO PRN (05:22)
[2019-12-12] MEDS ORDERED: Albuterol 2.5 MG/3 ML NEBULIZER IH PRN (05:22)
[2019-12-12] MEDS ORDERED: ADVAIR IH SCH (05:30)
[2019-12-12] MEDS ORDERED: *HR* Promethazine 25 MG/ML VIAL IVP PRN (06:00)
[2019-12-12] MEDS ORDERED: Acetaminophen 325 MG TABLET PO PRN (06:00)
[2019-12-12] MEDS ORDERED: *HR* Heparin 5,000 UNIT/ML VIAL SQ SCH (06:00)
[2019-12-12 06:10] LABS: Hematocrit 38.7 % (35.3-44.9); Hemoglobin 12.3 g/dL (11.5-15.4); Mean Corpuscular HGB Conc 31.8 g/dL (31.6-35.5); Mean Corpuscular Hemoglobin 30.5 pg (28.0-33.3); Mean Platelet Volume 10.4 fL (9.4-12.4); Platelet Count 195 K/mcL (140-400); Red Blood Count 4.03 M/mcL (3.82-4.97); Red Cell Distribution Width 15.9 % (11.5-14.5); White Blood Count 10.7 K/mcL (4.3-11.1)
[2019-12-12 06:14] LABS: Prothrombin Time 11.1 Seconds (9.4-12.1)
[2019-12-12] MEDS ORDERED: Regadenoson 0.4 MG/5 ML SYRINGE IVP ONE (06:18)
[2019-12-12 06:32] LABS: Albumin 3.8 g/dL (3.5-5.7); Albumin/Globulin Ratio 1.5 (1.1-2.2); Bilirubin,Total 0.2 mg/dL (0.3-1.0); Calcium 8.8 mg/dL (8.6-10.3); Chol/HDL Ratio 2.6 (0-4.9); Globulin 2.6 g/dL (2.4-3.5); Magnesium 2.2 mg/dL (1.6-2.6); Phosphorous 3.2 mg/dL (2.7-4.5); Potassium 3.8 mEq/L (3.5-5.1); Total Protein 6.4 g/dL (6.4-8.9)
[2019-12-12] MEDS ORDERED: Isosorbide MONOnitrate (24 HR) 30 MG TAB.ER.24H PO SCH (09:00)
[2019-12-12] MEDS ORDERED: Cholecalciferol (D-3) 1,000 UNIT (25MCG) TABLET PO SCH (09:00)
[2019-12-12] MEDS ORDERED: Pregabalin 75 MG CAPSULE PO SCH (09:00)
[2019-12-12] MEDS ORDERED: amLODIPine 5 MG TABLET PO SCH (09:00)
[2019-12-12] MEDS ORDERED: Aspirin 81 MG TAB.CHEW PO SCH (09:00)
[2019-12-12] MEDS ORDERED: Fluticasone Propionate Nasal 50 MCG/SPRAY BOTTLE NS SCH (09:00)
[2019-12-12 11:08] VITALS: BP 164/70
== END 2019-12-12 14:57 | disposition home or self-care (01) ==
LOC: 2ANU 22:17 → EMEROOARM 22:17 → SUATTDRO 12-12 04:15 → 2ANU 12-12 04:37
PROVIDERS: ADMIT Internal Medicine; ATTEND Internal Medicine